=== PATIENT | male | born 1935 ===

== ENCOUNTER 2016-11-28 10:41 | Emergency (ER) | payer MEDICARE, OTHER ==
--- NOTE | 2016-11-28 13:17 | UC ---
Eye Complaint HPI - HPI Summary HPI Summary: 81 yo male with right eye irritation x 3 days matted shut this AM no pain - History of Current Complaint Chief Complaint: UCEye Stated Complaint: EYE ISSUE Time Seen by Provider: 11/28/16 13:08 Hx Obtained From: Patient Onset/Duration: Gradual Onset, Lasting Days Timing: Constant Severity Initially: Mild Severity Currently: Mild Pain Intensity: 0 Pain Scale Used: 0-10 Numeric Associated Signs And Symptoms: Positive: Drainage (Purulent) - Allergies/Home Medications Allergies/Adverse Reactions: Allergies Allergy/AdvReac Type Severity Reaction Status Date / Time Iodine Allergy Hives Verified 11/28/16 11:45 Home Medications: Home Medications Aspirin [Aspirin 81 MG TAB] 81 mg PO DAILY 11/28/16 [History Confirmed 11/28/16] Cetirizine* [ZyrTEC 10 MG TAB*] 10 mg PO PRN 11/28/16 [History] PMH/Surg Hx/FS Hx/Imm Hx Previously Healthy: Yes - Surgical History Surgical History: None - Family History Known Family History: Positive: Hypertension - Social History Alcohol Use: Rare Substance Use Type: None Smoking Status (MU): Former Smoker Review of Systems Constitutional: Negative Skin: Negative Eyes: Drainage, Eye Redness ENT: Negative Respiratory: Negative Cardiovascular: Negative Gastrointestinal: Negative Genitourinary: Negative Motor: Negative Neurovascular: Negative Musculoskeletal: Negative Neurological: Negative Psychological: Negative All Other Systems Reviewed And Are Negative: Yes Physical Exam Triage Information Reviewed: Yes Appearance: Well-Appearing, No Pain Distress, Well-Nourished Vital Signs: Initial Vital Signs Temp 97.8 F 11/28/16 11:41 Pulse 68 11/28/16 11:41 Resp 18 11/28/16 11:41 BP 141/98 11/28/16 11:41 Pulse Ox 100 11/28/16 11:41 Eyes: Positive: Conjunctiva Inflamed, Discharge ENT: Positive: Hearing grossly normal Neck: Positive: Supple, Nontender, No Lymphadenopathy Respiratory: Positive: Lungs clear, Normal breath sounds, No respiratory distress Cardiovascular: Positive: RRR, No Murmur Neurological: Positive: Alert Psychological Exam: Normal Skin Exam: Normal Eye Complaint Course/Dx - Differential Dx/Diagnosis Provider Diagnoses: conjunctivitis (right) Discharge - Discharge Plan Condition: Stable Disposition: HOME Prescriptions: Polymyx/Trimethoprim OPTH* [Polytrim OPHTH*] 1 - 2 drop RIGHT EYE QID #1 btl Patient Education Materials: Conjunctivitis (ED) Additional Instructions: you can also use ZADITOR eye drops OTC recheck for worsening symptoms or if not better in 4 days you BP is a little high you should see your MD in 2 weeks for recheck
== END 2016-11-28 13:33 | disposition home or self-care (01) ==
LOC: UCEAST 10:41
DX: H10.31 Unspecified acute conjunctivitis, right eye (principal); Z87.891 Personal history of nicotine dependence
CPT/HCPCS: 99202; G0463